=== PATIENT | female | born 1950 | race Caucasian/White ===

== ENCOUNTER → 2020-07-18 | Outpatient (CLI) | payer MEDICARE, OTHER ==
[~2020-07-18] MED LIST: ACET; ALEVE220 M1 PO; ANTIVERT 25MG T25 MG PO; AUGMENTIN 875-1 EACH PO; BUSPAR 10MG10 MG PO; CODIENE; CYMBALTA60 MG PO; ENERGY; GLUCOPHAGE XR500 MG PO; KLONOPIN2 MG PO; NEURONTIN 300300 MG PO; PERCOCET 5/325 T1 EA PO; PROBIOTIC1 EAC3 PO; TYLENOL W/CODEIN1 E1 PO; VITAMIN D-40400 UNIT PO; ZYRTEC10 MG PO
== END ==
LOC: EXRD 04-10 10:30
DX: M81.0 Age-related osteoporosis without current pathological fracture (principal); M54.9 Dorsalgia, unspecified; G89.29 Other chronic pain
CPT/HCPCS: 77080

== ENCOUNTER → 2020-12-06 | Outpatient (CLI) | payer MEDICARE, OTHER | LOC: MAMO 10:00 | DX: Z12.31 Encounter for screening mammogram for malignant neoplasm of breast (principal) | CPT/HCPCS: 77063; 77067 ==

== ENCOUNTER 2021-05-29 03:38 | Emergency (ER) | payer MEDICARE, OTHER ==
[2021-05-29 05:34] LABS: RED BLOOD COUNT 4.41 M/UL (4.00-5.10); WHITE BLOOD COUNT 11.4 K/UL (4.5-11.0)
[2021-05-29 05:54] LABS: BUN/CREATININE RATIO 14 (0-10)
[2021-05-29] MEDS ORDERED: HYDROCODON-ACE1 EAC4 PO (06:52)
== END 2021-05-29 08:20 | disposition home or self-care (01) ==
LOC: ER1 03:38
PROVIDERS: Family Medicine
DX: S42.035A Nondisplaced fracture of lateral end of left clavicle, initial encounter for closed fracture (principal); E10.9 Type 1 diabetes mellitus without complications; I10 Essential (primary) hypertension; F17.200 Nicotine dependence, unspecified, uncomplicated; Z79.84 Long term (current) use of oral hypoglycemic drugs; Z79.82 Long term (current) use of aspirin; W10.8XXA Fall (on) (from) other stairs and steps, initial encounter; Y92.009 Unspecified place in unspecified non-institutional (private) residence as the place of occurrence of the external cause
CPT/HCPCS: 70450; 72125; 72128; 72131; 73000; 73030; 80053; 82550; 82553; 84484; 85025; 93005; 99284

== ENCOUNTER 2021-11-18 16:30 | Emergency (ER) | payer MEDICARE, OTHER ==
[~2021-11-18 16:30] MED LIST changes: +HYDROCODON-ACE1 EAC4 PO
[2021-11-18 17:05] LABS: HEMOGLOBIN 12.9 gm/dl (12.3-15.3); RED BLOOD COUNT 4.2 M/UL (4.00-5.10); WHITE BLOOD COUNT 7.4 K/UL (4.5-11.0)
[2021-11-18 17:28] LABS: BUN/CREATININE RATIO 15 (0-10)
== END 2021-11-18 19:10 | disposition home or self-care (01) ==
LOC: ER1 16:30
DX: R51.9 Headache, unspecified (principal); E11.9 Type 2 diabetes mellitus without complications; I10 Essential (primary) hypertension; F17.210 Nicotine dependence, cigarettes, uncomplicated; W19.XXXA Unspecified fall, initial encounter
CPT/HCPCS: 70450; 71045; 80053; 82550; 82553; 84484; 85025; 93005; 99284